=== PATIENT | female | born 1985 | race Two or more races ===

== ENCOUNTER 2020-07-30 00:19 | Emergency (ER) | payer OTHER ==
[~2020-07-30] VITALS: Ht 167.6 cm; Wt 58.5 kg
[2020-07-30] MEDS ORDERED: PROTONIX40 M1 (00:29)
[2020-07-30] MEDS ORDERED: LEVSIN/SL0.125 MG SL (02:52)
== END 2020-07-30 03:00 | disposition home or self-care (01) ==
LOC: ER 00:19
DX: K80.50 Calculus of bile duct without cholangitis or cholecystitis without obstruction (principal)